=== PATIENT | male | born 1955 | race Caucasian/White ===

== ENCOUNTER 2022-01-09 13:09 | Emergency (ER) | payer OTHER ==
[2022-01-09 13:34] VITALS: TEMP 98.5; BMI 26.9
[2022-01-09 15:23] LABS: BASO % 0.4 % (0-2.0); EOS % 0.4 % (0-4.5); HEMATOCRIT 43.4 % (35.4-49); HEMOGLOBIN 14.9 GM/dL (11.7-16.9); LYMPH % 25.2 % (8-40); MCHC 34.4 g/dl (32.0-35.9); MEAN CELL VOLUME 87.2 fl (80-96); MONO % 6.9 % (3.8-10.2); NEUT % 67.1 % (42.8-82.8); PLATELET COUNT 141 10^3/uL (134-434); RBC 4.98 M/mm3 (4.00-5.60); RDW 13.4 % (11.9-15.9)
[2022-01-09 15:33] LABS: INR 1.21 (0.83-1.09); PROTHROMBIN TIME (PATIENT) 13.9 SEC (9.7-13.0)
[2022-01-09 15:36] LABS: ACTIVATED PTT 30.5 SECONDS (25.2-36.5)
[2022-01-09 15:40] LABS: CALCIUM 8.8 mg/dL (8.5-10.1)
[2022-01-09 15:41] LABS: BLOOD UREA NITROGEN 15.4 mg/dL (7-18)
[2022-01-09 15:43] LABS: MAGNESIUM 2.4 mg/dL (1.8-2.4)
[2022-01-09 15:44] LABS: CREATININE 0.9 mg/dL (0.55-1.3)
[2022-01-09 15:45] LABS: BILIRUBIN,TOTAL 0.4 mg/dL (0.2-1); TOT PROT 6.9 g/dl (6.4-8.2)
[2022-01-09 17:24] LABS: URINE APPEARANCE CLEAR; URINE BILIRUBIN NEGATIVE (NEGATIVE); URINE COLOR YELLOW; URINE GLUCOSE (UA) NEGATIVE (NEGATIVE); URINE KETONE NEGATIVE (NEGATIVE); URINE LEUK ESTERASE NEGATIVE (NEGATIVE); URINE NITRITE NEGATIVE (NEGATIVE); URINE PROTEIN NEGATIVE (NEGATIVE); URINE UROBILINOGEN 0.2 mg/dL (0.2-1.0)
[2022-01-09 19:09] VITALS: BP 147/94; PULSE 66
[2022-01-09] MEDS ORDERED: ASPIRIN 81 MG CHEWABLE TABLETS PO ONE (21:05)
[2022-01-09] MEDS ORDERED: ASPIRIN 81 MG CHEWABLE TABLETS ONE (21:10)
== END 2022-01-09 21:23 | disposition left against medical advice (07) ==
LOC: JER 13:09
DX: I63.89 Other cerebral infarction (principal)
CPT/HCPCS: 36415; 70450-TC; 70552-TC; 80053; 81003; 83735; 85025; 85610; 85730; 86850; 86900; 86901; 87077; 87086; 93005; 93010; 99285-25